=== PATIENT | female | born 1960 | race Caucasian/White ===

== ENCOUNTER 2021-02-01 15:32 | Emergency (ER) | payer SELFPAY ==
[~2021-02-01] VITALS: Ht 165.1 cm; Wt 74.8 kg
--- NOTE | 2021-02-01 16:18 | NUR ---
The patient bibs for "Slipped and fell yesterday Hurt Right shoulder arm". The patient c/o right arm/shoulder/elbow pain rating 9/10. Noted right elbow swelling. Able to move fingers. Denies numbness/tingling in the arm. Will continue to monitor the patient.
--- NOTE | 2021-02-01 16:29 | NUR ---
DR FREGOSO AT THE BEDSIDE
--- NOTE | 2021-02-01 16:48 | NUR ---
x-ray tech at the bedside
[2021-02-01 18:03] VITALS: BP 131/75
--- NOTE | 2021-02-01 18:03 | NUR ---
Patient discharged to home in stable condition. Written and verbal after care instructions given. Patient verbalizes understanding of instruction.
== END 2021-02-01 18:04 | disposition home or self-care (01) ==
LOC: ER 15:34
DX: S59.811A Other specified injuries right forearm, initial encounter (principal); I10 Essential (primary) hypertension; W01.0XXA Fall on same level from slipping, tripping and stumbling without subsequent striking against object, initial encounter; Y93.89 Activity, other specified; Y92.89 Other specified places as the place of occurrence of the external cause; Y99.8 Other external cause status
CPT/HCPCS: 73030-TC; 73060-TC; 73090-TC; 73110

== ENCOUNTER 2021-06-06 17:19 | Emergency (ER) | payer MEDICAID ==
[~2021-06-06] VITALS: Ht 162.6 cm; Wt 77.1 kg
--- NOTE | 2021-06-06 17:19 | NUR ---
PT BIB DAUGHTER C/O ABDOMINAL PAIN, NAUSEA AND FREQUENT URINATION FOR 1 WEEK. PT IS AAOX4, NOT IN RESPIRATORY DISTRESS, V/S STABLE, KEPT RESTED AND COMFORTABLE. WILL CONTINUE TO MONITOR.
--- NOTE | 2021-06-06 17:45 | NUR ---
URINE SPECIMEN COLLECTED AND SENT TO LAB.
--- NOTE | 2021-06-06 18:00 | NUR ---
IV LINE ESTABLISHED BLOOD DRAWN AND SENT TO LAB.
[2021-06-06] MEDS ORDERED: KETOROLAC TROMETHAMINE 15 MG/ML VIAL ONE (18:09)
[2021-06-06] MEDS ORDERED: MORPHINE SULFATE INJ 4 MG/ML DISP.SYRIN ONE (18:09)
[2021-06-06] MEDS ORDERED: ONDANSETRON HCL/PF 4 MG/2 ML VIAL ONE (18:09)
[2021-06-06] MEDS: IV NS 0.9% 1,000 ML BAG IV ONE (18:14)
[2021-06-06] MEDS: KETOROLAC TROMETHAMINE INJ 30 MG/ML VIAL IV ONE (18:14)
[2021-06-06] MEDS: MORPHINE SULFATE INJ 2 MG/ML DISP.SYRIN IV ONE (18:14)
[2021-06-06] MEDS: ONDANSETRON HCL/PF 4 MG/2 ML VIAL IVP ONE (18:15)
[2021-06-06 19:04] LABS: BILIRUBIN,URINE NEGATIVE (NEGATIVE); COLOR,URINE YELLOW (YELLOW); LEUKOCYTE ESTERASE ,URINE SMALL (NEGATIVE); NITRITE, URINE NEGATIVE (NEGATIVE); PROTEIN,URINE NEGATIVE (NEGATIVE); UGLUCOSE NEGATIVE (NEGATIVE); UROBILINOGEN,URINE 0.2 EU/dL (0.2)
[2021-06-06 19:14] LABS: BACTERIA,URINE 2+ /HPF (None Seen); SQUAMOUS EPITHELIAL CELL,UR 0-2 /HPF (None Seen)
[2021-06-06] MEDS ORDERED: CEFTRIAXONE 1GM BAG (ER ONLY) 50 ML IV ONE (19:25)
[2021-06-06] MEDS: CEFTRIAXONE 1GM BAG (ER ONLY) 50 ML IV ONE (19:30)
[2021-06-06 19:37] LABS: ALBUMIN 3.7 g/dL (3.4-5.0); BILIRUBIN,DIRECT 0.1 mg/dL (0.0-0.2); BILIRUBIN,TOTAL 0.3 mg/dL (0.2-1.0); CALCIUM, SERUM 8.7 mg/dL (8.5-10.1); CREATININE 0.9 mg/dL (0.6-1.3); TOTAL PROTEIN, SERUM 7.6 g/dL (6.4-8.2)
[2021-06-06 19:39] LABS: POTASSIUM 3.4 mmol/L (3.5-5.1)
[2021-06-06 19:46] LABS: BASOPHILS % (AUTO) 0.3 % (0.0-2.0); EOSINOPHILS % (AUTO) 0.6 % (0.0-6.0); HEMATOCRIT 41 % (33-45); HEMOGLOBIN 13.8 g/dL (11.5-14.8); LYMPHOCYTES # (AUTO) 2.2 K/uL (0.8-4.8); MEAN CORPUSCULAR HGB CONC 34 g/dl (31.0-36.0); MEAN CORPUSCULAR VOLUME 91 fL (82-100); MONOCYTES # (AUTO) 0.5 K/uL (0.1-1.30); MONOCYTES % (AUTO) 7.3 % (2.0-12.0); NEUTROPHILS # (AUTO) 4.3 K/uL (1.8-8.9); NEUTROPHILS % (AUTO) 60.8 % (43.0-81.0); PLATELET COUNT (AUTO) 215 K/uL (150-450); RED BLOOD CELL COUNT(AUTO) 4.52 MIL/uL (4.0-5.2)
[2021-06-06] MEDS ORDERED: IBUP-1955 PO (20:08)
[2021-06-06] MEDS ORDERED: CIPR-262 PO (20:08)
--- NOTE | 2021-06-06 20:16 | NUR ---
Patient discharged to home in stable condition. Written and verbal after care instructions given. Patient verbalizes understanding of instruction.
[2021-06-06 20:54] VITALS: BP 130/71
== END 2021-06-06 20:55 | disposition home or self-care (01) ==
LOC: ER 17:24
DX: N12 Tubulo-interstitial nephritis, not specified as acute or chronic (principal); R91.1 Solitary pulmonary nodule; I10 Essential (primary) hypertension; E78.00 Pure hypercholesterolemia, unspecified; E03.9 Hypothyroidism, unspecified; Z79.1 Long term (current) use of non-steroidal anti-inflammatories (NSAID)
CPT/HCPCS: 36415; 74176; 80048; 80076; 81001; 83690; 85025; 87086; 93005; 96361; 96365; 96375; 99285; J0696; J1885; J2270; J2405

== ENCOUNTER 2023-07-13 17:41 | Emergency (ER) | payer MEDICAID ==
[~2023-07-13] VITALS: Ht 170.2 cm; Wt 79.8 kg
[~2023-07-13 17:41] MED LIST: CIPR-262 PO; IBUP-1955 PO
[2023-07-13] MEDS ORDERED: TETRAcaine 5 ML BOTTLE ONE (18:05)
[2023-07-13] MEDS ORDERED: FLUORESCEIN SODIUM OPHTH 1 EA STRIP ONE (18:05)
[2023-07-13] MEDS: FLUORESCEIN SODIUM OPHTH 1 EA STRIP OP ONE (18:06)
[2023-07-13] MEDS: TETRACAINE HCL 0.5% OPHTALMIC 15 ML BOTTLE OP ONE (18:08)
[2023-07-13] MEDS ORDERED: POLY10DR OP (18:20)
[2023-07-13 18:27] VITALS: BP 128/69; TEMP 98.1; O2SAT 98
== END 2023-07-13 18:27 | disposition home or self-care (01) ==
LOC: ER 17:51
DX: S05.01XA Injury of conjunctiva and corneal abrasion without foreign body, right eye, initial encounter (principal); I10 Essential (primary) hypertension; E78.00 Pure hypercholesterolemia, unspecified; X58.XXXA Exposure to other specified factors, initial encounter; Y93.89 Activity, other specified; Y92.89 Other specified places as the place of occurrence of the external cause; Y99.8 Other external cause status